=== PATIENT | female | born 1985 | race Two or more races ===

== ENCOUNTER 2017-08-14 19:05 | Emergency (ER) | payer OTHER ==
[~2017-08-14] VITALS: Ht 170.2 cm; Wt 125.0 kg
[2017-08-14] MEDS ORDERED: KETOROLAC 60MG/2ML VIAL IM ONE (23:30)
[2017-08-15 00:50] VITALS: BP 121/75
[2017-08-15] MEDS ORDERED: ACETAMINOPHEN 325MG TABLET PO ONE (01:45)
[2017-08-15] MEDS ORDERED: HYDROCODONE/ACETAMINOPHEN 5/325MG TABLET PO ONE (01:45)
== END 2017-08-15 02:29 | disposition home or self-care (01) ==
LOC: ER 20:59
DX: M25.552 Pain in left hip (principal); M25.521 Pain in right elbow; Z88.0 Allergy status to penicillin; W17.89XA Other fall from one level to another, initial encounter; Y93.89 Activity, other specified; Y92.89 Other specified places as the place of occurrence of the external cause; Y99.8 Other external cause status
CPT/HCPCS: 73080; 73502; 96372; 99284; J1885; Z7610